=== PATIENT | male | born 1980 | race Caucasian/White ===

== ENCOUNTER 2018-02-06 14:24 | Outpatient (CLI) | payer BC | END 2018-02-06 14:25 | disposition home or self-care (01) | LOC: SC 14:24 | PROVIDERS: ATTEND Internal Medicine Pulmonary Disease | DX: R06.81 Apnea, not elsewhere classified (principal); G47.10 Hypersomnia, unspecified; G47.8 Other sleep disorders; R06.83 Snoring; R41.89 Other symptoms and signs involving cognitive functions and awareness; E66.9 Obesity, unspecified; Z68.39 Body mass index [BMI] 39.0-39.9, adult; F17.290 Nicotine dependence, other tobacco product, uncomplicated | CPT/HCPCS: 99203; 99212 ==

== ENCOUNTER 2018-03-23 19:36 | Outpatient (CLI) | payer BC | END 2018-03-23 19:37 | disposition home or self-care (01) | LOC: SC 19:36 | PROVIDERS: ATTEND Internal Medicine Pulmonary Disease | DX: G47.33 Obstructive sleep apnea (adult) (pediatric) (principal) | CPT/HCPCS: 95810 ==

== ENCOUNTER 2018-04-06 13:13 | Outpatient (CLI) | payer BC | END 2018-04-06 13:14 | disposition home or self-care (01) | LOC: SC 13:13 | PROVIDERS: ATTEND Nurse Practitioner Family | DX: G47.33 Obstructive sleep apnea (adult) (pediatric) (principal); R03.0 Elevated blood-pressure reading, without diagnosis of hypertension; F17.200 Nicotine dependence, unspecified, uncomplicated | CPT/HCPCS: 99212; 99214 ==

== ENCOUNTER 2018-08-08 14:41 | Outpatient (CLI) | payer BC | END 2018-08-08 14:42 | disposition home or self-care (01) | LOC: SC 14:41 | PROVIDERS: ATTEND Nurse Practitioner Family | DX: G47.33 Obstructive sleep apnea (adult) (pediatric) (principal) | CPT/HCPCS: 99212; 99214 ==

== ENCOUNTER 2018-09-21 14:21 | Outpatient (CLI) | payer BC | END 2018-09-21 14:22 | disposition home or self-care (01) | LOC: SC 14:21 | PROVIDERS: ATTEND Nurse Practitioner Family | DX: G47.33 Obstructive sleep apnea (adult) (pediatric) (principal); R03.0 Elevated blood-pressure reading, without diagnosis of hypertension | CPT/HCPCS: 99212; 99215 ==

== ENCOUNTER 2019-01-08 14:40 | Outpatient (CLI) | payer BC ==
[2019-01-08 15:39] VITALS: BP 126/86
--- NOTE | 2019-01-08 15:39 | SLEEP CARE CONSULTATION ---
Information from patient questionnaire entered by Soco Naranjo. I have reviewed and concur with the information entered by Soco Naranjo. This document represents the service I personally performed and the decisions made by me, Pia Garcia, RN, MSN, FARM OPERATIONS TECHNICAL DIRECTOR. History of Present Illness Previous diagnosis: Moderate, Obstructive Sleep Apnea-Hypopnea Syndrome AHI: 22.2 Reason for follow up: other (2 month) Equipment type: CPAP Equipment obtained from: [facility] Mask style: Nasal (wisp / no chin strap) Mask brand: Respironics Backup mask available: Yes Last cushion change: 3 months HPI additional information: the longer hose was not needed as the new mask had a small hose attachment and he just slept closer to CPAP. He forgot the 2 week diary. He has changed his sleep habits to be more regular and has had some reduction in insomnia in staying asleep with CPAP on. Still has trouble getting to sleep and does not think it is due to things on his mind. He thinks this is due to trying to sleep on back and side instead of stomach, his usual position of sleep before CPAP due to his mask. His spouse who is a nurse is monitoring his blood pressure and range has been similar to todays. He did not follow up with his PCP as advised and was advised to follow through and take his home readings for further evaluation and guidelines. CPAP Compliance Data - Data Reviewed with Patient Average duration of nightly device use: 2.2 Compliance rate %: 21.7 (60 days) Current pressure setting (cmH2O): 4-10 Average residual AHI: 2.7 Average large leak: 1 min 32 sec Subjective Patient concerns: reports: air blowing in eyes, mask leak noise, condensation in mask/hose (about 1 time a week - did not realize he turned off the heated hose. ), nasal congestion (from recent cold for 3 weeks affecting CPAP use - he used saline nasal spray with some benefit), dry mouth, nose, throat (dry mouth a couple times a week. ), other (preferred position is prone and mask dislodges and he wakes with mask leaks or mask off face. ). denies: aerophagia, mask discomfort, epistaxis Observed to snore while using device: No Current pressure setting perceived as: comfortable On therapy, patient: reports: sleeping better, awakening more refreshed (when able to sleep through the night), being more awake and alert during the day, more rested overall. denies: drowsiness while driving Initial [place] Sleepiness Scale score: 15 Current [place] Sleepiness Scale score: 6 Allergies and Home Medications Known drug allergies: No Home medication list reviewed: Yes (no medications) Review of Systems Review of systems same as previous: Yes Physical Exam Blood Pressure: 126/86 Cuff size: long Heart Rate: 80 O2 Saturation: 98 Height: 5 ft 11.5 in Weight: 277 lb 9.6 oz Weight change since last visit: lost 2 pounds Body Mass Index: 38.2 BMI Classification: Obesity Class 2 Impression and Plan 1. Obstructive Sleep Apnea-Hypopnea Syndrome, moderate, with poor treatment compliance and good apnea control. On CPAP therapy, the patient has better sleep quality and is more rested overall. Compliance fell due to being ill with cold for about 3 weeks and difficulty to use CPAP. It appears he has sleep onset insomnia due to trying to sleep on his back or side with CPAP. He prefers prone position but unable to achieve with his CPAP mask. Thus I showed him a CPAP pillow. This and other styles can be bought online for about $60. His oral dryness could be from jaw dropping in sleep with his nasal mask as well as opening mouth when nasal congestion. He wonders if a full face mask would work better. He has not had a new mask from [employer] since set up in June so now due. I showed him some samples and it appears the [employer] full face mask will work best and an order was written. For oral dryness, I showed him where he turned off the humidity and heated hose. Thus I reviewed rationale for use of humidity and heated hose and to restart , changing setting for comfort. The higher humidity setting will reduce nasal congestion. In addition, I will change his auto CPAP pressure to [id number]. ( His mean pressure is 6.2 and 90% is 8cmH20). He is to contact me if uncomfortable. Hopefully the above measures will improve his use of CPAP and increase compliance a goals. If continued insomnia, he is to complete the sleep diary given at last visit. Patient's apnea severity and rationale for treatment to reduce apnea, improve sleep quality and reduce cardiovascular and cerebrovascular events was reviewed. I also reviewed the benefit of consistent device use of CPAP for hypertension. * * Change CPAP pressure to 6-10 cmH2O * Try CPAP pillow * Mask refitting - Dreamwear full face mask * Adjust humidity and heated hose. * Use CPAP with all sleep. * Notify me if snoring with mask or feeling that the pressure is too much or too little * Continue to lose weight * Return for follow up in 1- 2 months , or sooner if concerns arise I spent 100% of this 40 minute visit face to face with the patient with greater than 50% of this was spent time counseling the patient and coordination of care.
== END 2019-01-08 14:41 | disposition home or self-care (01) ==
LOC: SC 14:40
PROVIDERS: ATTEND Nurse Practitioner Family
DX: G47.33 Obstructive sleep apnea (adult) (pediatric) (principal)
CPT/HCPCS: 99212; 99215

== ENCOUNTER 2019-03-14 15:11 | Outpatient (CLI) | payer BC ==
[2019-03-14 16:10] VITALS: BP 144/94
--- NOTE | 2019-03-14 16:10 | SLEEP CARE CONSULTATION ---
Information from patient questionnaire entered by Soco Naranjo. I have reviewed and concur with the information entered by Soco Naranjo. This document represents the service I personally performed and the decisions made by me, Pia Garcia, RN, MSN, SHAREPOINT APPLICATION ARCHITECT. History of Present Illness Previous diagnosis: Moderate, Obstructive Sleep Apnea-Hypopnea Syndrome AHI: 22.2 Reason for follow up: other (2 month) Equipment type: CPAP Equipment obtained from: [facility] Mask style: Full face (Dreamwear) Mask brand: Respironics Backup mask available: Yes Last cushion change: not since obtained new mask about 1 month ago. HPI additional information: Changes since last seen is urinary symptoms and diagnosed with interstitial cystitus. He has started to change his diet as recommended. Still frequent trips to the bathroom 1-5 times. The new Dreamwear full face mask has assisted him to use longer periods. CPAP Compliance Data - Data Reviewed with Patient Average duration of nightly device use: 3.6 Compliance rate %: 28.3 (60 days) Current pressure setting (cmH2O): 4-8 Humidity settin Heated hose settin Average residual AHI: 3.0 Average large leak: 4 min 54 sec Subjective Patient concerns: reports: mask leak noise (patient notices mask leaks as going to sleep due to mask dislodging forward ), nasal congestion, other (falling asleep on the couch in evening. pulling mask in sleep - wonders if too high pressure ). denies: aerophagia, mask discomfort, air blowing in eyes, condensation in mask/hose, dry mouth, nose, throat, epistaxis Observed to snore while using device: No Current pressure setting perceived as: too high On therapy, patient: reports: sleeping better, awakening more refreshed, being more awake and alert during the day, more rested overall. denies: drowsiness while driving Initial [place] Sleepiness Scale score: 15 Current [place] Sleepiness Scale score: 5 Allergies and Home Medications Known drug allergies: Yes Home medication list reviewed: Yes (new medication added nortriptyline) Allergy and home medication list: nortriptyline nightly for intersititial cystitis ibuprofen 600mg HS and 400mg in AM Review of Systems Review of systems same as previous: No (Cystoscopy - interstitial cystitis ) Physical Exam Blood Pressure: 144/94 Cuff size: long Heart Rate: 82 O2 Saturation: 97 Height: 5 ft 11.5 in Weight: 280 lb 9.6 oz Body Mass Index: 38.5 BMI Classification: Obesity Class 2 Impression and Plan 1. Obstructive Sleep Apnea-Hypopnea Syndrome, moderate, with better treatment compliance and good apnea control. He has improved use of CPAP that he related to his new mask style. However, compliance is still poor with only 28% of use more than 4 hours. Despite poor compliance on CPAP therapy, the patient has better sleep quality and is more rested overall especially when he is able to use it longer. To improve comfort of CPAP air pressure, I will again reduce his CPAP pressure this time to 4-6cmH20. Thus he is to contact me if the pressure is too low or too high. It is hoped this will prevent him from pulling off the mask in sleep. To reduce falling asleep on couch, he was advised to increase the noise on his phone alarm he just started as suggested last visit as he sleeps through current alarm. He is also discussing with spouse about going to bed earlier and she is to assist with children going to bed. I also discussed the importance of keeping his mask cushion changed regularly to maintain fit and comfort of mask to assist him to use CPAP longer. We also looked at a sample mask like his and how it can be adjusted properly for better fit. A picture was shown how it is to look. Thus he is instructed to work on adjusting his mask better. Patient's apnea severity and rationale for treatment to reduce apnea, improve sleep quality and reduce cardiovascular and cerebrovascular events was reviewed. I also reviewed the benefit of consistent device use of CPAP for his hypertension. 2. Elevated blood pressure,The patient continues to have elevated blood pressure readings as noted today and past visits here. Patient advised to follow up with PCP for re-evaluation. Evidently his PCP was wanting to see if BP would reduce with CPAP use per patient before adding medications. But patient continues to struggle using CPAP through the night. Benefit is generally noted only if patient is able to use CPAP with all sleep consistently . Patient also advised on how weight loss can also reduce his blood pressure as well as stopping smoking.. He states he and spouse have started changing dietary intake and he is now packing lunch with healther content and portions. He is also reducing smoking. Health risks of untreated hypertension discussed. Patient agreed to follow up with PCP. * * Change autoCPAP pressure to 4-6 cmH2O * Implement methods to use CPAP longer * Notify me if snoring with mask or feeling that the pressure is too much or too little * Attempt to lose weight * Call this office if any problems using CPAP * Follow up with PCP for further evaluation of blood pressure. * Return for follow up in 1-2 months , or sooner if concerns arise Time Spent with Patient (minutes): 40 I spent 100% of this visit face to face with the patient with greater than 50% of this was spent time counseling the patient and coordination of care.
== END 2019-03-14 15:12 | disposition home or self-care (01) ==
LOC: SC 15:11
PROVIDERS: ATTEND Nurse Practitioner Family
DX: G47.33 Obstructive sleep apnea (adult) (pediatric) (principal); R03.0 Elevated blood-pressure reading, without diagnosis of hypertension; E66.9 Obesity, unspecified; Z68.38 Body mass index [BMI] 38.0-38.9, adult
CPT/HCPCS: 99212; 99215

== ENCOUNTER 2019-05-30 17:49 | Outpatient (CLI) | payer BC | END 2019-05-30 17:50 | disposition home or self-care (01) | LOC: COV 17:49 | PROVIDERS: ATTEND Family Medicine | DX: R05 Cough (principal); R50.9 Fever, unspecified ==

== ENCOUNTER 2020-03-31 09:03 | Outpatient (CLI) | payer OTHER, BC ==
--- NOTE | 2020-03-31 09:52 | XRAY Report ---
PROCEDURE: Knee 3 View RT INDICATIONS: R KNEE PX TECHNIQUE: 3 views of the right knee(s) were acquired. COMPARISON: None. FINDINGS: Bones: No fractures or dislocations. No suspicious bony lesions. Soft tissues: No joint effusion. No suspicious soft tissue calcifications. IMPRESSION: Unremarkable radiographic examination of right knee. If indicated, MRI of knee can be do ne for evaluation of internal derangement. Reviewed by: Yonis Cox MD on 03/31/2020 9:50 AM PST Approved by: Yonis Cox MD on 03/31/2020 9:50 AM PST Station ID: [id number]
== END 2020-03-31 09:04 | disposition home or self-care (01) ==
LOC: DI.N 09:03
PROVIDERS: ATTEND Family Medicine
DX: M25.561 Pain in right knee (principal)

== ENCOUNTER 2021-05-04 07:36 | Outpatient (CLI) | payer BC ==
--- NOTE | 2021-05-04 14:02 | XRAY Report ---
PROCEDURE: Ankle 2 View LT INDICATIONS: L ANKLE PX TECHNIQUE: 2 views of the ankle were acquired. COMPARISON: None FINDINGS: Bones: No fractures or dislocations. Ankle mortise is normally aligned. No suspicious bony lesions . Soft tissues: No tibiotalar joint effusion. Achilles tendon appears normal. IMPRESSION: No visualized acute fracture or dislocation. However, occult injury cannot be excluded. Recommend short interval imaging follow-up in 7-10 days as clinically indicated for additional evalua tion. Reviewed by: Lexy Lieberman MD on 05/04/2021 2:00 PM PST Approved by: Lexy Lieberman MD on 05/04/2021 2:00 PM PST Station ID: [id number]
== END 2021-05-04 23:59 | disposition home or self-care (01) ==
LOC: DI.N 07:36
PROVIDERS: ATTEND Nurse Practitioner
DX: M25.572 Pain in left ankle and joints of left foot (principal)

== ENCOUNTER 2021-08-25 10:38 | Outpatient (CLI) | payer OTHER, BC ==
--- NOTE | 2021-08-25 13:05 | XRAY Report ---
PROCEDURE: Knee 2 View RT INDICATIONS: SPRAIN OF R KNEE TECHNIQUE: 2 views of the right knee(s) were acquired. COMPARISON: None. FINDINGS: Bones: No fractures or dislocations. No suspicious bony lesions. Soft tissues: No joint effusion. No suspicious soft tissue calcifications. IMPRESSION: No acute fracture. No osseous lesion. If symptoms and/or clinical suspicion for patholog y continue, further assessment with repeat plain films, or advanced imaging (e.g., CT, MRI, or bone s can) is recommended for further assessment. Reviewed by: Corinne Wilkerson MD on 08/25/2021 1:04 PM PDT Approved by: Corinne Wilkerson MD on 08/25/2021 1:04 PM PDT Station ID: [id number]
== END 2021-08-25 10:39 | disposition home or self-care (01) ==
LOC: DI 10:38
PROVIDERS: ATTEND Family Medicine
DX: S83.91XA Sprain of unspecified site of right knee, initial encounter (principal)

== ENCOUNTER 2022-06-24 13:34 | Emergency (ER) | payer OTHER, BC ==
[2022-06-24 13:45] VITALS: BP 209/119
[2022-06-24] MEDS ORDERED: AMOX/CLAV 875 MG/125 MG TABLET PO STA (13:49)
--- NOTE | 2022-06-24 13:56 | ED Physician Documentation ---
PD HPI UPPER EXT INJURY - Stated complaint Stated Complaint: HAND INJURY - Chief complaint Chief Complaint: Ext Problem - History obtained from History obtained from: Patient - Additonal information Additional information: 41-year-old right-handed gentleman is up-to-date on tetanus. He was at a job site, he works for the [employer], and the senior financial's dog bit him with several puncture wounds about the right wrist. The dog is reportedly healthy and fully immunized as well. This happened just prior to arrival. PD PAST MEDICAL HISTORY - Past Medical History Past Medical History: Yes Cardiovascular: Hypertension Respiratory: None Neuro: None Endocrine/Autoimmune: None GI: None : None HEENT: None Psych: None Musculoskeletal: None Derm: None - Past Surgical History Past Surgical History: Yes General: Appendectomy, Other HEENT: Tonsil/Adenoidectomy - Present Medications Home Medications: Ambulatory Orders Medication Instructions Recorded Confirmed Amox/Clav 875/125 [Augmentin] 1 each PO Q12H #10 tablet 06/24/22 - Allergies Allergies/Adverse Reactions: Allergies Allergy/AdvReac Type Severity Reaction Status Date / Time No Known Drug Allergies Allergy Verified 06/24/22 13:44 - Social History Does the pt smoke?: No Smoking Status: Never smoker Does the pt drink ETOH?: Yes Does the pt have substance abuse?: No - Immunizations Immunizations are current?: Yes - POLST Patient has POLST: No PD ED PE NORMAL - Vitals Vital signs reviewed: Yes - General General: Alert and oriented X 3, No acute distress - Derm Derm: Normal color, Warm and dry - Extremities Extremities: Other (There are 3 puncture wounds about the medial side of the right wrist. None are actively bleeding. Nongaping or big enough to suture. He has normal flexor and extension function in all digits and normal neurovascular status in the right hand.) - Neuro Neuro: Alert and oriented X 3, Normal speech Results - Vitals Vitals: Vital Signs - 24 hr 06/24/22 13:37 Temperature 36.6 C Heart Rate 78 Respiratory 17 Rate Blood Pressure 209/119 H O2 Saturation 99 Oxygen O2 Source Room air PD Medical Decision Making - ED course ED course: Wounds were irrigated and dressed. He was started on Augmentin for prophylaxis.L&I paperwork [id number] completed. Departure - Departure Disposition: 01 Home, Self Care Clinical Impression: Dog bite of right wrist Qualifiers: Encounter type: initial encounter Qualified Code(s): S61.551A - Open bite of right wrist, initial encounter Condition: Good Record reviewed to determine appropriate education?: Yes Instructions: ED Bite Dog Prescriptions: Amox/Clav 875/125 [Augmentin] 1 each PO Q12H #10 tablet Comments: For wound care, simply soap and water and a Band-Aid is all you really need to do, keep an eye on it for signs of infection including increased pain, redness, swelling, drainage, or fever. If you develop any of the above please return immediately for reevaluation. Your blood pressure was elevated today on check into the emergency department. This does not mean that you have hypertension, it is a common phenomenon to come to the emergency department and have elevated blood pressure. I recommend that you see your primary care physician within the week to have it rechecked when you are feeling better.
== END 2022-06-24 14:10 | disposition home or self-care (01) ==
LOC: ED 13:34
DX: S61.551A Open bite of right wrist, initial encounter (principal); W54.0XXA Bitten by dog, initial encounter; Y99.0 Civilian activity done for income or pay; I10 Essential (primary) hypertension
CPT/HCPCS: 1040M; 99282; 99283; A9270

== ENCOUNTER 2022-12-06 22:42 | Emergency (ER) | payer BC, OTHER ==
--- NOTE | 2022-12-06 23:48 | XRAY Report ---
PROCEDURE: Shoulder 3 View RT INDICATIONS: pain TECHNIQUE: 4 views of the shoulder were acquired. COMPARISON: None. FINDINGS: Bones: No displaced fracture or dislocation. Soft tissues: No suspicious calcifications. IMPRESSION: No acute radiographic abnormality. If there is high concern for occult injury, consider repeat radiog matthew or cross-sectional imaging. Reviewed by: Daniel Glez MD on 12/06/2022 11:47 PM PDT Approved by: Daniel Glez MD on 12/06/2022 11:47 PM PDT Station ID: [id number]
--- NOTE | 2022-12-07 00:03 | ED Physician Documentation ---
History of Present Illness - Stated complaint Stated Complaint: R SHOULDER PX - Chief complaint Chief Complaint: Ext Problem - History obtained from History obtained from: Patient - Additonal information Additional information: HPI from patient. Patient c/o sudden onset, but initially mild, right shoulder pain. 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 He raised his right arm above his head to reposition when the pain started. Since then, the pain has been constant and steadily progressive in intensity. Denies h/o similar symptoms and denies h/o joint problems including the right shoulder. He is right hand dominant. The pain is sometimes worse with movement of the right shoulder, but other times seems to briefly improve with movement. Denies weakness, numbness. Denies neck pain. Denies dyspnea and there is no pleuritic component. Patient drove self to ED. Review of Systems Constitutional: denies: Fever, Chills, Sweats Cardiac: denies: Chest pain / pressure Respiratory: denies: Dyspnea Skin: denies: Rash PD PAST MEDICAL HISTORY - Past Medical History Cardiovascular: Hypertension Respiratory: None Neuro: None Endocrine/Autoimmune: None GI: None : None HEENT: None Psych: None Musculoskeletal: None Derm: None - Past Surgical History Past Surgical History: Yes General: Appendectomy, Other HEENT: Tonsil/Adenoidectomy - Present Medications Home Medications: Ambulatory Orders Medication Instructions Recorded Confirmed Amox/Clav 875/125 [Augmentin] 1 each PO Q12H #10 tablet 06/24/22 Cyclobenzaprine [Flexeril] 10 mg PO TID PRN #20 tablet 12/07/22 Oxycodone HCl/Acetaminophen 1 - 2 each PO Q6H PRN #14 tablet 12/07/22 [Percocet 5-325 mg Tablet] - Allergies Allergies/Adverse Reactions: Allergies Allergy/AdvReac Type Severity Reaction Status Date / Time No Known Drug Allergies Allergy Verified 12/06/22 22:45 - Social History Does the pt smoke?: No Smoking Status: Never smoker Does the pt drink ETOH?: Yes Does the pt have substance abuse?: No - Immunizations Immunizations are current?: Yes - POLST Patient has POLST: No PD ED PE NORMAL - Vitals Vital signs reviewed: Yes - General General: Alert and oriented X 3, Well developed/nourished, Other (appears to be in moderate painful distres, waxing and waning intensity without apparent exacerbating/ameliorating factors) - Neck Neck: Supple, no meningeal sign - Cardiac Cardiac: RRR, No murmur - Respiratory Respiratory: No respiratory distress, Clear bilaterally - Abdomen Abdomen: Soft, Non tender - Back Back: No spinal TTP - Derm Derm: No rash - Extremities Extremities: No tenderness to palpate, No edema - Neuro Neuro: No motor deficit (limited strength testing of right shoulder due to pain with some ROM. He has full (5/5) right sole assessor strength and finger abduction), No sensory deficit (LTS intact LUE) Results - Vitals Vitals: Vital Signs - 24 hr 12/06/22 12/06/22 12/07/22 22:45 23:45 00:47 Temperature 37.3 C Heart Rate 85 102 H 100 Respiratory 20 18 22 Rate Blood Pressure 160/90 H 167/111 H 199/120 H O2 Saturation 97 98 99 Oxygen O2 Source Room air - Rads (name of study) right shoulder xrays Relevant Findings:: Prelim report reviewed, See rad report PD Medical Decision Making - ED course Complexity details: reviewed results, re-evaluated patient, considered differential, d/w patient ED course: Unremarkable right shoulder xrays. No elements of H+P/ROS to suggest emergent process at this point. Doubt infectious cause (no erythema, joint is not hot to touch, afebrile). Gout would likewise typically have some degree of erythema and/or abnormal warmth to touch, and shoulder would be atypical for first gouty attack (patient has no h/o gout). Bursitis possible; no h/o prolonged leaning on the right elbow and no h/o unusual and/or repetitive activity involving the shoulder (suggests against tendonitis). Further emergent testing is not indicated at this time. Return precautions are d/w patient. He is given take-home packs of flexeril and percocet and prescriptions for these medications electronically submitted to patient's pharmacy of choice. Advised to follow up with PCP , next available appointment I am prescribing a short course of short-acting opioid pain medication for this patient. I have reviewed the patients BACTERIOLOGY PROFESSOR and no concerning findings were noted. I have discussed that the opioids are for short term therapy only, and will not be refilled from the ED. Departure - Departure Disposition: Home, Self Care Clinical Impression: Shoulder pain, right Qualifiers: Chronicity: acute Qualified Code(s): M25.511 - Pain in right shoulder Condition: Good Instructions: ED Shoulder Pain [facility] Follow-Up: Gino Garza MD [Primary Care Provider] - (Call to arrange for next available appointment; ideally, follow up this week ) Prescriptions: Cyclobenzaprine [Flexeril] 10 mg PO TID PRN #20 tablet PRN Reason: Spasms Oxycodone HCl/Acetaminophen [Percocet 5-325 mg Tablet] 1 - 2 each PO Q6H PRN #14 tablet PRN Reason: pain Comments: Herminioight's x-rays of your shoulder were unremarkable; there is no indication on the x-rays of any abnormality, let alone an abnormality that would explain your pain. As we discussed, there are structures in any joint, including the shoulder, that can cause pain that will not show up on plain-film x-rays. This includes structures such as bursa (thus, if you have a bursitis, this could explain shoulder pain and would not show up on x-ray), as well as ligaments and tendons (thus, tendinitis would also be a potential explanation; this is less likely, as tendinitis often involves injury or recent overuse of the joint). Contact your primary care provider's office in the morning when they open to arrange for next billable appointment; ideally, if can be arranged, reevaluation by the end of this week should be scheduled. I have electronically submitted prescriptions for Percocet (opiate/narcotic pain medication) and cyclobenzaprine (muscle relaxant) to the [facility] pharmacy in [place]. You can try ibuprofen (motrin, advil) for the pain and then use the percocet and cyclobenzaprine if the ibuprofen alone is ineffective. I am prescribing a short course of narcotic pain medication for you. These are potentially dangerous and addictive medications that should be used carefully. These medications may constipate you. Take an [id number] stool softener (docusate) twice daily with plenty of water while taking these medications. If you go 24 hours without a bowel movement, take [id number] miralax, per package instructions. Do not drink or drive while taking these medications. If you received narcotic or sedating medications while in the emergency department, do not drive for 24 hours. Store this medication in a safe, secure place and out of reach of children. It is a violation of federal law to give or sell this medication to another person or to use in a manner other than prescribed. The ED will not refill narcotic prescriptions, including prescriptions lost or stolen. To dispose of unwanted medications: 1. [facility] [address] in [place] has a medication drop box. They accept prescription medications (in pill form) Tuesday through Tuesday 9:00 a.m. to 5:00 p.m. 2. The [facility] accepts prescription medications (in pill form only) for disposal year round. Call for more information. 3. Contact the [facility] for the next [facility] sponsored prescription drug collection event. , [phone], or [phone]; Forms: PCP List Discharge Date/Time: 12/07/22 00:49
[2022-12-07] MEDS ORDERED: KETOROLAC 60 MG/2 ML VIAL IM STA (00:19)
[2022-12-07] MEDS ORDERED: oxyCODONE/ACET 5/325 Prepack 4 PO STA (00:19)
[2022-12-07] MEDS ORDERED: CYCLOBENZAPRINE 10 MG Prepack 2 PO PRN (00:19)
[2022-12-07 00:57] VITALS: BP 199/120; O2SAT 99
== END 2022-12-07 00:49 | disposition home or self-care (01) ==
LOC: ED 22:42
DX: M25.511 Pain in right shoulder (principal); I10 Essential (primary) hypertension
CPT/HCPCS: 96372; 99283

== ENCOUNTER 2023-01-22 13:58 | Outpatient (CLI) | payer OTHER ==
--- NOTE | 2023-01-24 12:01 | MRI Report ---
PROCEDURE: SHOULDER WO - RT INDICATIONS: PARSONAGE BARBOSA SYN TECHNIQUE: Noncontrast oblique coronal T2 fast spin echo with fat saturation, oblique sagittal T1 spin echo and T2 fast spin echo with fat saturation, axial T1 spin echo and T2 fast spin echo with fat saturation a nd 3-D gradient echo through the shoulder. COMPARISON: Right shoulder radiographs 12/06/2022. FINDINGS: Image quality: Excellent. Rotator cuff: Mild supraspinatus tendinosis with low-grade bursal surface fraying but no significant tear. Moderate infraspinatus tendinosis. The teres minor tendon is intact. There is mild subscapulari s tendinosis. Rotator cuff musculature is normal in bulk without signs of acute or chronic denervatio n changes. Bones and bursae: No acute trabecular bone injury or fracture. Chronic traction cystic changes are se en in the posterosuperior humeral head. Focal cartilage loss is seen at the anterior glenoid with sub chondral cystic changes. Moderate degenerative changes are seen at the acromioclavicular joint with s ubchondral edema and subchondral cystic changes and small marginal osteophytes. There is a small amou nt of fluid in the subacromial/subdeltoid bursa. A physiologic amount of glenohumeral joint fluid is present. There is a 5 mm hypointense structure just posterior to the anterosuperior labrum adjacent t o the glenoid (image 11 of axial series 4) that could represent small intra-articular loose body. Capsule and soft tissues: There is nondisplaced tearing of the anterior-inferior, anterosuperior, and superior labrum. Posterior labrum is intact. There is mild tendinosis of the proximal biceps long he ad tendon. Partial effacement of the fat signal is noted in the rotator interval. The anterior band o f the inferior glenohumeral ligament appears thickened. IMPRESSION: 1.Diffuse mild to moderate rotator cuff tendinosis involving the supraspinatus, infraspinatus, and gilmore bscapularis tendons. There is low-grade bursal surface fraying at the distal supraspinatus tendon wit hout a significant rotator cuff tendon tear. 2.Visualized musculature is normal and signal intensity and bulk without signs of acute or chronic de nervation changes. 3.Mild proximal biceps long head tendinosis. 4.Nondisplaced tearing of the anteroinferior, anterosuperior, superior labrum. 5.Focal cartilage defect at the anterior-inferior glenoid adjacent to the labral tear with focal subc hondral cystic changes. Possible 5 mm intra-articular loose body adjacent to the anterosuperior gleno id rim. 6.Moderate acromioclavicular joint osteoarthrosis. 7.Small subacromial/subdeltoid bursal effusion or mild bursitis. 8.Partial effacement of the rotator interval fat and mild thickening of the inferior glenohumeral lig ament are nonspecific, but can be seen in the setting of the clinical syndrome of adhesive capsulitis despite the presence of physiologic glenohumeral joint fluid. Reviewed by: Chavo Devine MD on 01/24/2023 11:59 AM PST Approved by: Chavo Devine MD on 01/24/2023 11:59 AM PST Station ID: [id number]
== END 2023-01-22 13:59 | disposition home or self-care (01) ==
LOC: DI 13:58
PROVIDERS: ATTEND Internal Medicine
DX: G54.5 Neuralgic amyotrophy (principal); M75.81 Other shoulder lesions, right shoulder; S43.431A Superior glenoid labrum lesion of right shoulder, initial encounter; M19.011 Primary osteoarthritis, right shoulder

== ENCOUNTER 2023-02-10 08:00 | Outpatient (CLI) | payer OTHER ==
--- NOTE | 2023-02-10 12:07 | XRAY Report ---
PROCEDURE: Shoulder 2 View RT INDICATIONS: RIGHT SHOULDER PAIN, Y VIEW/AXIAL ONLY TECHNIQUE: 3 views of the shoulder were acquired. COMPARISON: 12/06/2022. FINDINGS: Bones: No fractures or dislocations. No suspicious bony lesions. Visualized ribs appear intact. Soft tissues: No suspicious soft tissue calcifications. The visualized lungs are within normal limi ts. IMPRESSION: No acute bony abnormality. Reviewed by: Roel Pendleton MD on 02/10/2023 12:05 PM PST Approved by: Roel Pendleton MD on 02/10/2023 12:05 PM PST Station ID: [id number]
== END 2023-02-10 23:59 | disposition home or self-care (01) ==
LOC: DI.WOS 08:00
PROVIDERS: ATTEND Physician Assistant Surgical
DX: S43.421D Sprain of right rotator cuff capsule, subsequent encounter (principal)